=== PATIENT | male | born 1980 | race Caucasian/White ===

== ENCOUNTER 2017-01-11 22:10 | Inpatient (IN) ==
[2017-01-11] MEDS ORDERED: *HR* LORazepam 1 MG TABLET PO ONE (22:58)
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
[2017-01-11 23:16] LABS: Bilirubin,Urine Negative (Negative); Blood,Urine Negative (Negative); Clarity,Urine Clear (Clear); Color,Urine Yellow (Yellow); Glucose,Urine (UA) Normal (Normal); Ketones,Urine Trace mg/dL (Negative); Leukocyte Esterase,Urine Negative (Negative); Nitrite,Urine Negative (Negative); Protein,Urine Trace mg/dL (Neg-Trace); Specific Gravity,Urine > 1.030 (1.010-1.025); Urobilinogen,Urine Normal (Normal)
[2017-01-11 23:18] LABS: Basophils % 0.4 %; Eosinophils # 0.1 K/mcL (0.0-0.6); Eosinophils % 0.5 %; Hematocrit 46.1 % (37.5-50.1); Hemoglobin 15.5 g/dL (12.9-16.9); Immature Granulocytes % 0.4 % (0-4); Lymphocytes # 1.9 K/mcL (0.6-4.6); Mean Corpuscular HGB Conc 33.6 g/dL (31.6-35.5); Mean Corpuscular Hemoglobin 28.8 pg (28.0-33.3); Mean Corpuscular Volume 85.7 fL (83.0-100.0); Mean Platelet Volume 10.2 fL (9.4-12.4); Monocytes # 0.8 K/mcL (0.0-1.3); Monocytes % 7.5 %; Neutrophils # 8.1 K/mcL (1.6-8.9); Platelet Count 287 K/mcL (140-400); Red Blood Count 5.38 M/mcL (4.19-5.50); Red Cell Distribution Width 13.9 % (11.5-14.5); Segmented Neutrophils % 74.2 %
[2017-01-11 23:18] LABS: Bacteria,Urine None Seen per hpf (None-Few); Hyaline Casts,Urine None Seen per lpf (None-Few); RBC,Urine 0-3 per hpf (0-3); Squamous Epithelial Cell,Urine Few per lpf (None-Few); WBC,Urine 0-3 per hpf (0-3)
[2017-01-11 23:22] LABS: Amphetamine Screen,Urine Negative ng/mL (Cutoff=1000); Barbiturate Screen,Urine Negative ng/mL (Cutoff=200); Benzodiazepines Screen,Urine Negative ng/mL (Cutoff=200); Cannabinoid Screen,Urine Negative ng/mL (Cutoff = 50); Cocaine Screen,Urine Negative ng/mL (Cutoff= 300); Opiate Screen,Urine Negative ng/mL (Cutoff=300); Phencyclidine Screen,Urine Negative ng/mL (Cutoff=25)
[2017-01-11 23:31] LABS: BUN/Creatinine Ratio 18 (6-26); Blood Urea Nitrogen 16 mg/dL (8-26); Carbon Dioxide 22 mEq/L (19-29); Chloride 107 mEq/L (98-109); Glucose 89 mg/dL (70-99); Osmolality,Calculated 289 (280-300); Potassium 3.6 mEq/L (3.5-4.5); Sodium 139 mEq/L (136-145); eGFR For African Americans > 60 (> 60); eGFR For Non-African Americans > 60 (> 60)
[2017-01-11 23:32] LABS: Acetaminophen < 1.0 mcg/mL (10-30); Ethanol < 10 mg/dL (0-10); Salicylate < 5.0 mg/dL (15-30)
[2017-01-12] MEDS ORDERED: Acetaminophen 325 MG TABLET PO PRN (01:01)
[2017-01-12] MEDS ORDERED: MOM Conc 10 ML UD.LIQ PO PRN (01:01)
[2017-01-12] MEDS ORDERED: *HR* LORazepam 1 MG TABLET PO PRN (01:01)
[2017-01-12] MEDS ORDERED: Mag Hydrox/Al Hydrox/Simeth 30 ML UDC PO PRN (01:01)
[2017-01-12] MEDS ORDERED: Haloperidol Lactate 5 MG/ML VIAL IM PRN (01:01)
[2017-01-12] MEDS ORDERED: *HR* LORazepam 2 MG/ML VIAL IM PRN (01:01)
[2017-01-12] MEDS: traZODone 50 MG TABLET PO PRN ×2 (01:38→22:44)
[2017-01-12] MEDS: Gabapentin 400 MG CAPSULE PO SCH ×2 (09:05→20:27)
[2017-01-12] MEDS: Fluticasone Propionate Nasal 50 MCG/SPRAY BOTTLE NS SCH (09:05)
[2017-01-12] MEDS: Nicotine 2 MG GUM BC PRN ×4 (09:12→21:18)
[2017-01-12] MEDS: hydrOXYzine pamoate 25 MG CAPSULE PO PRN ×2 (09:42→20:52)
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
[2017-01-12] MEDS: ARIPiprazole 2 MG TABLET PO SCH (14:50)
[2017-01-13] MEDS: ARIPiprazole 2 MG TABLET PO SCH (08:45)
[2017-01-13] MEDS: Gabapentin 400 MG CAPSULE PO SCH (08:45)
[2017-01-13] MEDS: Fluticasone Propionate Nasal 50 MCG/SPRAY BOTTLE NS SCH (08:46)
[2017-01-13] MEDS: Nicotine 2 MG GUM BC PRN ×2 (08:47→14:15)
[2017-01-13 09:37] VITALS: BP 124/72
--- NOTE | 2017-01-13 12:29 | Discharge Summary ---
Date of Encounter: 01/13/17 Time of Encounter: 10:25 Diagnosis - Discharge Diagnosis (1) Major depressive disorder, recurrent severe without psychotic features Priority: Primary Status: Acute (2) Anxiety disorder Priority: Secondary Status: Acute Qualifiers: Anxiety disorder type: generalized anxiety disorder Qualified Code(s): F41.1 - Generalized anxiety disorder Medications - Discharge Medications Prescriptions: RX: ARIPiprazole [Abilify] 2 mg PO DAILY #30 tab RX: Escitalopram [Lexapro] 20 mg PO DAILY #30 tab RX: HydrOXYzine Pamoate [Vistaril] 50 mg PO TID PRN #90 capsule PRN Reason: Anxiety RX: traZODone [TraZODone] 50 mg PO HS PRN #30 tab PRN Reason: Insomnia Escitalopram [Lexapro] 30 mg PO DAILY #45 tablet 06/23/15 [Rx] Gabapentin [Neurontin] 800 mg PO TID 07/16/16 [History] Albuterol Sulfate [Ventolin Hfa] 1 - 2 puff IH Q6H PRN 01/12/17 [History] Loratadine [Claritin] 10 mg PO DAILY 01/12/17 [History] ARIPiprazole [Abilify] 2 mg PO DAILY #30 tab 01/13/17 [Rx] Escitalopram [Lexapro] 20 mg PO DAILY #30 tab 01/13/17 [Rx] HydrOXYzine Pamoate [Vistaril] 50 mg PO TID PRN #90 capsule 01/13/17 [Rx] traZODone [TraZODone] 50 mg PO HS PRN #30 tab 01/13/17 [Rx] Allergies promethazine [From Phenergan] Allergy (Verified 07/20/16 10:49) Hives Provider Date of admission: 01/12/17 00:47 Primary care physician: PCP NONE Consults: 01/12/17 01:28 Consult to Pastoral Services [CONS] Routine Comment: per patient request Discharging clinician: Hoa Neal Assessment and Plan - Patient/Caregiver Discharge Instructions Activity: resume usual activities as tolerated Diet: regular diet - Follow up Plan Follow up with: NONE,PCP [Primary Care Provider] - Functional capacity at discharge: independent ambulation Overall status at discharge: Stable Disposition: Home, Self-Care Hospital Course Hospital course: Mr. Ott is a 36 year old male with a history of depression and anxiety who presented to the hospital with increasing agitation, anxiety and depression. He also had suicidal ideations. Patient was admitted to [facility] for psychiatric stabilization. He was incorporated into the therapeutic milieu and offer group and individual as well as recreational therapy. He was placed on suicide precautions and close observation per unit protocol. Patient was continued on Lexapro but started on Abilify to help with mood symptoms. He was provided with trazodone for sleep and hydroxyzine for anxiety symptoms. Patient reported that his depression symptoms improved with starting the medication. He did attend some group and unit activities and was cooperative and appropriate with peers and staff. At the time of discharge she denied suicidal or homicidal ideation, intent or plan. He was interested in continuing his treatment as an outpatient. He denies side effects of his current medications. Discharge in stable condition to continue treatment as an outpatient. - Time Spent with Patient Total time spent providing and/or coordinating discharge services: Less than 30 minutes Quality - Multiple Antipsychotics Patient discharged on 2 or more antipsychotic medications: No Procedures - Procedures Procedures: Medication Management, Crisis Stabilization, Supportive Therapy, Group Therapy, Psychoeducational Therapy Mental Status Exam - Mental Status Exam Patient orientation: Yes Person, Yes Time, Yes Place Level of alertness: Alert Patient appearance: Appropriate, Well Groomed Behavior: calm, cooperative Psychomotor activity: Normal Eye contact: Maintains Eye Contact Mood description: Euthymic/stable Affect description: congruent with mood, full range Speech pattern: Normal rate, Normal rhythm, Normal tone Speech Volume: Normal Thought process: Linear, Goal Oriented Thought Content: No Suicidal ideation, No Homicidal ideation, No Overt delusions Perceptual Disturbances: No Auditory hallucinations, No Visual hallucinations Judgment: Limited Insight: Partial
== END 2017-01-13 14:55 | disposition home or self-care (01) | DRG 751 ==
LOC: EMEROO 22:10 → 1ANU 01-12 00:47
PROVIDERS: ADMIT Student in an Organized Health Care Education/Training Program; ATTEND Student in an Organized Health Care Education/Training Program

== ENCOUNTER 2019-10-16 16:34 | Inpatient (IN) ==
[2019-10-16 17:14] LABS: Bilirubin,Urine Negative (Negative); Blood,Urine Negative (Negative); Clarity,Urine Clear (Clear); Color,Urine Yellow (Yellow); Glucose,Urine (UA) Normal (Normal); Ketones,Urine Negative (Negative); Leukocyte Esterase,Urine Negative (Negative); Nitrite,Urine Negative (Negative); PH,Urine 6.5 pH Units (5.0-8.0); Protein,Urine Negative (Neg-Trace); Specific Gravity,Urine 1.026 (1.010-1.025); Urobilinogen,Urine Normal (Normal)
[2019-10-16 17:23] LABS: Amphetamine Screen,Urine Negative ng/mL (Cutoff=1000); Barbiturate Screen,Urine Negative ng/mL (Cutoff=200); Benzodiazepines Screen,Urine Negative ng/mL (Cutoff=200); Cannabinoid Screen,Urine Negative ng/mL (Cutoff = 50); Cocaine Screen,Urine Negative ng/mL (Cutoff= 300); Opiate Screen,Urine Negative ng/mL (Cutoff=300); Phencyclidine Screen,Urine Negative ng/mL (Cutoff=25)
[2019-10-16 18:33] LABS: Basophils # 0.1 K/mcL (0.0-0.2); Basophils % 0.6 %; Eosinophils # 0.1 K/mcL (0.0-0.6); Eosinophils % 0.8 %; Hematocrit 44.8 % (37.5-50.1); Hemoglobin 14.9 g/dL (12.9-16.9); Immature Granulocytes % 0.4 % (0-4); Lymphocytes # 2.2 K/mcL (0.6-4.6); Lymphocytes % 27.9 %; Mean Corpuscular HGB Conc 33.3 g/dL (31.6-35.5); Mean Corpuscular Hemoglobin 28.2 pg (28.0-33.3); Mean Corpuscular Volume 84.8 fL (83.0-100.0); Mean Platelet Volume 9.7 fL (9.4-12.4); Monocytes # 0.7 K/mcL (0.0-1.3); Monocytes % 8.6 %; Neutrophils # 4.8 K/mcL (1.6-8.9); Platelet Count 271 K/mcL (140-400); Red Blood Count 5.28 M/mcL (4.19-5.50); Red Cell Distribution Width 13.4 % (11.5-14.5); Segmented Neutrophils % 61.7 %; White Blood Count 7.7 K/mcL (4.3-11.1)
[2019-10-16 18:55] LABS: Acetaminophen < 10 mcg/mL (10-20); BUN/Creatinine Ratio 18 (6-26); Blood Urea Nitrogen 15 mg/dL (6-20); Calcium 8.8 mg/dL (8.6-10.3); Carbon Dioxide 23 mEq/L (23-29); Chloride 105 mEq/L (98-107); Ethanol < 10 mg/dL (Less than 10); Glucose 82 mg/dL (70-105); Osmolality,Calculated 286 (280-300); Salicylate < 2.5 mg/dL (15.0-30.0); Sodium 138 mEq/L (136-145); eGFR For African Americans > 60 (> 60); eGFR For Non-African Americans > 60 (> 60)
[2019-10-16] MEDS ORDERED: Acetaminophen 325 MG TABLET PO PRN (20:44)
[2019-10-16] MEDS ORDERED: *HR* LORazepam 2 MG/ML VIAL IM PRN (20:44)
[2019-10-16] MEDS ORDERED: Haloperidol Lactate 5 MG/ML VIAL IM PRN (20:44)
[2019-10-16] MEDS ORDERED: Ibuprofen 400 MG TABLET PO PRN (20:44)
[2019-10-16] MEDS ORDERED: QUEtiapine Fumarate 25 MG TABLET PO PRN (20:44)
[2019-10-16] MEDS ORDERED: haloperidoL 5 MG TABLET PO PRN (20:44)
[2019-10-16] MEDS ORDERED: *HR* LORazepam 1 MG TABLET PO PRN (20:44)
[2019-10-16] MEDS ORDERED: hydrOXYzine pamoate 25 MG CAPSULE PO PRN (21:30)
[2019-10-16] MEDS: Gabapentin 300 MG CAPSULE PO SCH (22:55)
[2019-10-16] MEDS: traZODone 50 MG TABLET PO SCH (22:57)
[2019-10-17] MEDS: Ziprasidone 20 MG CAPSULE PO SCH ×2 (08:30→20:36)
[2019-10-17] MEDS: Gabapentin 300 MG CAPSULE PO SCH ×3 (08:30→20:37)
[2019-10-17] MEDS: clonazePAM 1 MG TABLET PO SCH ×2 (08:30→20:37)
[2019-10-17] MEDS: Loratadine/Pseudophed (12 HR) 1 EACH TABLET PO SCH ×2 (08:30→20:36)
[2019-10-17] MEDS ORDERED: hydrOXYzine pamoate 25 MG CAPSULE PO PRN (09:55)
[2019-10-17] MEDS ORDERED: NON-FORMULARY MEDICATION 1 EACH EACH (Trazodone Hcl 150 MG) PO PRN (09:55)
[2019-10-17] MEDS ORDERED: Loratadine 10 MG TABLET PO SCH (10:00)
[2019-10-17] MEDS ORDERED: clonazePAM 1 MG TABLET PO SCH (10:00)
[2019-10-17] MEDS: Nicotine 2 MG GUM BC PRN ×4 (10:03→19:52)
[2019-10-17] MEDS: traZODone 50 MG TABLET PO SCH (20:37)
[2019-10-18] MEDS: Nicotine 2 MG GUM BC PRN ×6 (06:25→20:05)
[2019-10-18] MEDS: Gabapentin 300 MG CAPSULE PO SCH ×3 (08:47→20:06)
[2019-10-18] MEDS: Ziprasidone 20 MG CAPSULE PO SCH ×2 (08:47→20:05)
[2019-10-18] MEDS: clonazePAM 1 MG TABLET PO SCH ×2 (08:47→20:05)
[2019-10-18] MEDS: Loratadine/Pseudophed (12 HR) 1 EACH TABLET PO SCH ×2 (08:47→20:06)
[2019-10-18 13:04] LABS: Estimated Average Glucose 114 mg/dl
[2019-10-18] MEDS: traZODone 50 MG TABLET PO SCH (20:06)
[2019-10-19] MEDS: clonazePAM 1 MG TABLET PO SCH (08:38)
[2019-10-19] MEDS: Ziprasidone 20 MG CAPSULE PO SCH (08:38)
[2019-10-19] MEDS: Loratadine/Pseudophed (12 HR) 1 EACH TABLET PO SCH (08:38)
[2019-10-19] MEDS: Gabapentin 300 MG CAPSULE PO SCH (08:38)
[2019-10-19] MEDS: Nicotine 2 MG GUM BC PRN ×2 (08:41→12:02)
[2019-10-19 09:11] VITALS: BP 119/75
== END 2019-10-19 13:20 | disposition home or self-care (01) | DRG 751 ==
LOC: EMEROOARM 16:34 → 1ANU 20:35
PROVIDERS: ADMIT Psychiatry & Neurology Psychiatry; ATTEND Psychiatry & Neurology Psychiatry

== ENCOUNTER 2020-03-24 12:03 | Inpatient (IN) ==
[2020-03-24 13:08] LABS: Basophils % 0.6 %; Eosinophils % 0.5 %; Hematocrit 48.9 % (37.5-50.1); Hemoglobin 16.9 g/dL (12.9-16.9); Immature Granulocytes % 0.3 % (0-4); Lymphocytes # 1.3 K/mcL (0.6-4.6); Lymphocytes % 20.2 %; Mean Corpuscular HGB Conc 34.6 g/dL (31.6-35.5); Mean Corpuscular Hemoglobin 29.9 pg (28.0-33.3); Mean Corpuscular Volume 86.4 fL (83.0-100.0); Monocytes # 0.5 K/mcL (0.0-1.3); Monocytes % 7.4 %; Neutrophils # 4.6 K/mcL (1.6-8.9); Platelet Count 272 K/mcL (140-400); Red Blood Count 5.66 M/mcL (4.19-5.50); White Blood Count 6.5 K/mcL (4.3-11.1)
[2020-03-24 13:10] LABS: Bilirubin,Urine Negative (Negative); Blood,Urine Negative (Negative); Clarity,Urine Clear (Clear); Color,Urine Yellow (Yellow); Glucose,Urine (UA) Normal (Normal); Ketones,Urine Negative (Negative); Leukocyte Esterase,Urine Negative (Negative); Nitrite,Urine Negative (Negative); Protein,Urine Trace mg/dL (Neg-Trace); Specific Gravity,Urine 1.029 (1.010-1.025); Urobilinogen,Urine Normal (Normal)
[2020-03-24 13:21] LABS: Estimated Average Glucose 111 mg/dl
[2020-03-24 13:38] LABS: Amphetamine Screen,Urine Negative ng/mL (Cutoff=1000); Barbiturate Screen,Urine Negative ng/mL (Cutoff=200); Benzodiazepines Screen,Urine Negative ng/mL (Cutoff=200); Cannabinoid Screen,Urine Negative ng/mL (Cutoff = 50); Cocaine Screen,Urine Negative ng/mL (Cutoff= 300); Opiate Screen,Urine Negative ng/mL (Cutoff=300); Phencyclidine Screen,Urine Negative ng/mL (Cutoff=25)
[2020-03-24 13:41] LABS: Acetaminophen < 10 mcg/mL (10-20); BUN/Creatinine Ratio 15 (6-26); Blood Urea Nitrogen 16 mg/dL (6-20); Calcium 9.1 mg/dL (8.6-10.3); Carbon Dioxide 22 mEq/L (23-29); Chloride 107 mEq/L (98-107); Chol/HDL Ratio 7.2 (0-4.9); Cholesterol 188 mg/dL (< 200); Ethanol < 10 mg/dL (Less than 10); Glucose 96 mg/dL (70-105); HDL Cholesterol 26 mg/dL (40-59); LDL Cholesterol,Calculated 138 mg/dL (< 100); Osmolality,Calculated 287 (280-300); Potassium 3.9 mEq/L (3.5-5.1); Salicylate < 2.5 mg/dL (15.0-30.0); Sodium 138 mEq/L (136-145); Triglycerides 118 mg/dL (< 150); eGFR For African Americans > 60 (> 60); eGFR For Non-African Americans > 60 (> 60)
[2020-03-24] MEDS ORDERED: Haloperidol Lactate 5 MG/ML VIAL IM PRN (15:54)
[2020-03-24] MEDS ORDERED: traZODone 50 MG TABLET PO PRN (15:54)
[2020-03-24] MEDS ORDERED: MOM Conc 10 ML UD.LIQ PO PRN (15:54)
[2020-03-24] MEDS ORDERED: haloperidoL 5 MG TABLET PO PRN (15:54)
[2020-03-24] MEDS ORDERED: Acetaminophen 325 MG TABLET PO PRN (15:54)
[2020-03-24] MEDS ORDERED: *HR* LORazepam 2 MG/ML VIAL IM PRN (15:54)
[2020-03-24] MEDS ORDERED: Mag Hydrox/Al Hydrox/Simeth 30 ML UDC PO PRN (15:54)
[2020-03-24] MEDS ORDERED: *HR* LORazepam 1 MG TABLET PO PRN (15:54)
[2020-03-24] MEDS: hydrOXYzine pamoate 25 MG CAPSULE PO SCH (16:52)
[2020-03-24] MEDS: clonazePAM 1 MG TABLET PO SCH (20:29)
[2020-03-24] MEDS: Ziprasidone 20 MG CAPSULE PO SCH (20:29)
[2020-03-24] MEDS: traZODone 50 MG TABLET PO SCH (20:29)
[2020-03-24] MEDS: Gabapentin 300 MG CAPSULE PO SCH (20:29)
[2020-03-24] MEDS: Nicotine 2 MG GUM BC PRN (22:15)
[2020-03-25] MEDS: hydrOXYzine pamoate 25 MG CAPSULE PO SCH ×3 (01:10→16:15)
[2020-03-25] MEDS: Nicotine 2 MG GUM BC PRN ×4 (07:50→20:18)
[2020-03-25] MEDS: clonazePAM 1 MG TABLET PO SCH ×2 (09:09→20:15)
[2020-03-25] MEDS: Ziprasidone 20 MG CAPSULE PO SCH ×2 (09:10→16:14)
[2020-03-25] MEDS: Gabapentin 300 MG CAPSULE PO SCH ×3 (09:10→20:15)
[2020-03-25] MEDS: traZODone 50 MG TABLET PO SCH (20:15)
[2020-03-26] MEDS: hydrOXYzine pamoate 25 MG CAPSULE PO SCH ×3 (00:17→16:49)
[2020-03-26] MEDS: Ziprasidone 20 MG CAPSULE PO SCH ×2 (08:57→16:49)
[2020-03-26] MEDS: Gabapentin 300 MG CAPSULE PO SCH ×3 (08:57→19:55)
[2020-03-26] MEDS: clonazePAM 1 MG TABLET PO SCH ×2 (08:57→19:54)
[2020-03-26] MEDS ORDERED: QUEtiapine Fumarate 25 MG TABLET PO PRN (08:58)
[2020-03-26] MEDS: Nicotine 2 MG GUM BC PRN ×4 (09:06→20:26)
[2020-03-26] MEDS ORDERED: QUEtiapine Fumarate 25 MG TABLET PO SCH (21:00)
[2020-03-27] MEDS: Ziprasidone 20 MG CAPSULE PO SCH (08:21)
[2020-03-27] MEDS: Gabapentin 300 MG CAPSULE PO SCH (08:22)
[2020-03-27] MEDS: hydrOXYzine pamoate 25 MG CAPSULE PO SCH ×2 (08:22)
[2020-03-27] MEDS: clonazePAM 1 MG TABLET PO SCH (08:22)
[2020-03-27] MEDS: Nicotine 2 MG GUM BC PRN (08:26)
[2020-03-27 08:34] VITALS: BP 129/80
== END 2020-03-27 10:05 | disposition home or self-care (01) | DRG 754 ==
LOC: EMEROOARM 12:03 → 1ANU 15:28
PROVIDERS: ADMIT Psychiatry & Neurology Psychiatry; ATTEND Psychiatry & Neurology Psychiatry

== ENCOUNTER 2020-05-16 12:47 | Observation (INO) ==
[2020-05-16 13:39] LABS: Basophils % 0.6 %; Eosinophils % 0.4 %; Hematocrit 46.4 % (37.5-50.1); Hemoglobin 15.2 g/dL (12.9-16.9); Immature Granulocytes % 0.6 % (0-4); Lymphocytes # 1.2 K/mcL (0.6-4.6); Mean Corpuscular HGB Conc 32.8 g/dL (31.6-35.5); Mean Corpuscular Hemoglobin 27.9 pg (28.0-33.3); Mean Corpuscular Volume 85.3 fL (83.0-100.0); Mean Platelet Volume 9.7 fL (9.4-12.4); Monocytes # 0.6 K/mcL (0.0-1.3); Monocytes % 8.9 %; Platelet Count 299 K/mcL (140-400); Red Blood Count 5.44 M/mcL (4.19-5.50); Red Cell Distribution Width 12.9 % (11.5-14.5); Segmented Neutrophils % 72.5 %; White Blood Count 6.9 K/mcL (4.3-11.1)
[2020-05-16 13:58] LABS: Acetaminophen < 10 mcg/mL (10-20); BUN/Creatinine Ratio 12 (6-26); Blood Urea Nitrogen 11 mg/dL (6-20); Calcium 8.7 mg/dL (8.6-10.3); Carbon Dioxide 24 mEq/L (23-29); Chloride 105 mEq/L (98-107); Chol/HDL Ratio 5.5 (0-4.9); Cholesterol 159 mg/dL (< 200); Ethanol < 10 mg/dL (Less than 10); Glucose 88 mg/dL (70-105); HDL Cholesterol 29 mg/dL (40-59); LDL Cholesterol,Calculated 105 mg/dL (< 100); Osmolality,Calculated 281 (280-300); Potassium 3.9 mEq/L (3.5-5.1); Salicylate < 2.5 mg/dL (15.0-30.0); Sodium 136 mEq/L (136-145); Triglycerides 127 mg/dL (< 150); eGFR For African Americans > 60 (> 60); eGFR For Non-African Americans > 60 (> 60)
[2020-05-16 14:04] LABS: Amphetamine Screen,Urine Negative ng/mL (Cutoff=1000); Barbiturate Screen,Urine Negative ng/mL (Cutoff=200); Benzodiazepines Screen,Urine Negative ng/mL (Cutoff=200); Cannabinoid Screen,Urine Negative ng/mL (Cutoff = 50); Cocaine Screen,Urine Negative ng/mL (Cutoff= 300); Opiate Screen,Urine Negative ng/mL (Cutoff=300); Phencyclidine Screen,Urine Negative ng/mL (Cutoff=25)
[2020-05-16 14:05] LABS: Bilirubin,Urine Negative (Negative); Blood,Urine Negative (Negative); Clarity,Urine Clear (Clear); Color,Urine Light-Yellow (Yellow); Glucose,Urine (UA) Normal (Normal); Ketones,Urine Negative (Negative); Leukocyte Esterase,Urine Negative (Negative); Nitrite,Urine Negative (Negative); PH,Urine 6.5 pH Units (5.0-8.0); Protein,Urine Negative (Neg-Trace); Specific Gravity,Urine 1.015 (1.010-1.025); Urobilinogen,Urine Normal (Normal)
[2020-05-16 15:29] LABS: Estimated Average Glucose 111 mg/dl
[2020-05-16] MEDS ORDERED: Acetaminophen 325 MG TABLET PO PRN (16:51)
[2020-05-16] MEDS ORDERED: haloperidoL 5 MG TABLET PO PRN (16:51)
[2020-05-16] MEDS ORDERED: Haloperidol Lactate 5 MG/ML VIAL IM PRN (16:51)
[2020-05-16] MEDS ORDERED: MOM Conc 10 ML UD.LIQ PO PRN (16:51)
[2020-05-16] MEDS ORDERED: traZODone 50 MG TABLET PO PRN (16:51)
[2020-05-16] MEDS ORDERED: Mag Hydrox/Al Hydrox/Simeth 30 ML UDC PO PRN (16:51)
[2020-05-16] MEDS: hydrOXYzine pamoate 25 MG CAPSULE PO SCH (17:20)
[2020-05-16] MEDS: Ziprasidone 20 MG CAPSULE PO SCH (20:57)
[2020-05-16] MEDS: traZODone 50 MG TABLET PO SCH (20:57)
[2020-05-16] MEDS: Gabapentin 300 MG CAPSULE PO SCH (20:57)
[2020-05-16] MEDS: clonazePAM 1 MG TABLET PO SCH (20:57)
[2020-05-16] MEDS: Nicotine 2 MG GUM BC PRN (21:01)
[2020-05-16] MEDS: Azelastine 0.1% Nasal Spray 30 ML BOTTLE NS SCH (22:31)
[2020-05-17] MEDS: hydrOXYzine pamoate 25 MG CAPSULE PO SCH ×3 (05:35→17:05)
[2020-05-17] MEDS: Ziprasidone 20 MG CAPSULE PO SCH ×2 (08:48→20:38)
[2020-05-17] MEDS: clonazePAM 1 MG TABLET PO SCH ×2 (08:49→20:38)
[2020-05-17] MEDS: Azelastine 0.1% Nasal Spray 30 ML BOTTLE NS SCH ×2 (08:49→20:39)
[2020-05-17] MEDS: Gabapentin 300 MG CAPSULE PO SCH ×3 (08:49→20:39)
[2020-05-17] MEDS: Nicotine 2 MG GUM BC PRN ×4 (08:53→21:05)
[2020-05-17] MEDS: traZODone 50 MG TABLET PO SCH (20:38)
[2020-05-18] MEDS: hydrOXYzine pamoate 25 MG CAPSULE PO SCH ×2 (01:09→08:33)
[2020-05-18] MEDS: Azelastine 0.1% Nasal Spray 30 ML BOTTLE NS SCH (08:32)
[2020-05-18] MEDS: Ziprasidone 20 MG CAPSULE PO SCH (08:33)
[2020-05-18] MEDS: clonazePAM 1 MG TABLET PO SCH (08:33)
[2020-05-18] MEDS: Gabapentin 300 MG CAPSULE PO SCH (08:33)
[2020-05-18] MEDS: Nicotine 2 MG GUM BC PRN (08:36)
[2020-05-18 08:58] VITALS: BP 133/84
== END 2020-05-18 11:00 | disposition home or self-care (01) ==
LOC: 1ANU 12:47 → EMEROOARM 12:47 → 1ANU 17:09
PROVIDERS: ADMIT Psychiatry & Neurology Psychiatry; ATTEND Psychiatry & Neurology Psychiatry

== ENCOUNTER 2020-07-28 17:53 | Observation (INO) ==
[2020-07-28 18:33] LABS: Basophils % 0.5 %; Eosinophils # 0.1 K/mcL (0.0-0.6); Eosinophils % 1.1 %; Hematocrit 45.3 % (37.5-50.1); Hemoglobin 15.4 g/dL (12.9-16.9); Immature Granulocytes % 0.4 % (0-4); Lymphocytes # 1.5 K/mcL (0.6-4.6); Mean Corpuscular Hemoglobin 29.2 pg (28.0-33.3); Mean Corpuscular Volume 85.8 fL (83.0-100.0); Mean Platelet Volume 9.6 fL (9.4-12.4); Monocytes # 1.1 K/mcL (0.0-1.3); Monocytes % 14.4 %; Neutrophils # 5.1 K/mcL (1.6-8.9); Platelet Count 278 K/mcL (140-400); Red Blood Count 5.28 M/mcL (4.19-5.50); Red Cell Distribution Width 13.8 % (11.5-14.5); Segmented Neutrophils % 64.6 %; White Blood Count 7.9 K/mcL (4.3-11.1)
[2020-07-28 18:48] LABS: Acetaminophen < 10 mcg/mL (10-20); BUN/Creatinine Ratio 21 (6-26); Blood Urea Nitrogen 16 mg/dL (6-20); Carbon Dioxide 25 mEq/L (23-29); Chloride 108 mEq/L (98-107); Ethanol < 10 mg/dL (Less than 10); Glucose 82 mg/dL (70-105); Osmolality,Calculated 288 (280-300); Potassium 3.8 mEq/L (3.5-5.1); Salicylate < 2.5 mg/dL (15.0-30.0); Sodium 139 mEq/L (136-145); eGFR For African Americans > 60 (> 60); eGFR For Non-African Americans > 60 (> 60)
[2020-07-28 18:59] LABS: Amphetamine Screen,Urine Negative ng/mL (Cutoff=1000); Barbiturate Screen,Urine Negative ng/mL (Cutoff=200); Benzodiazepines Screen,Urine Negative ng/mL (Cutoff=200); Bilirubin,Urine Negative (Negative); Blood,Urine Negative (Negative); Cannabinoid Screen,Urine Negative ng/mL (Cutoff = 50); Clarity,Urine Clear (Clear); Cocaine Screen,Urine Negative ng/mL (Cutoff= 300); Color,Urine Light-Yellow (Yellow); Glucose,Urine (UA) Normal (Normal); Ketones,Urine Negative (Negative); Leukocyte Esterase,Urine Negative (Negative); Mucus,Urine Few per lpf (None-Few); Nitrite,Urine Negative (Negative); Opiate Screen,Urine Negative ng/mL (Cutoff=300); PH,Urine 6.5 pH Units (5.0-8.0); Phencyclidine Screen,Urine Negative ng/mL (Cutoff=25); Protein,Urine 30 mg/dL (Neg-Trace); RBC,Urine 0-3 per hpf (0-3); Specific Gravity,Urine 1.027 (1.010-1.025); Urobilinogen,Urine Normal (Normal); WBC,Urine 0-3 per hpf (0-3)
[2020-07-28] MEDS ORDERED: MOM Conc 10 ML UD.LIQ PO PRN (21:51)
[2020-07-28] MEDS ORDERED: Acetaminophen 325 MG TABLET PO PRN (21:51)
[2020-07-28] MEDS ORDERED: hydrOXYzine pamoate 25 MG CAPSULE PO PRN (21:51)
[2020-07-28] MEDS ORDERED: haloperidoL 5 MG TABLET PO PRN (21:51)
[2020-07-28] MEDS ORDERED: *HR* LORazepam 2 MG/ML VIAL IM PRN (21:51)
[2020-07-28] MEDS ORDERED: traZODone 50 MG TABLET PO PRN (21:51)
[2020-07-28] MEDS ORDERED: Haloperidol Lactate 5 MG/ML VIAL IM PRN (21:51)
[2020-07-28] MEDS ORDERED: *HR* LORazepam 1 MG TABLET PO PRN (21:51)
[2020-07-28] MEDS ORDERED: Mag Hydrox/Al Hydrox/Simeth 30 ML UDC PO PRN (21:51)
[2020-07-28] MEDS: Nicotine 2 MG GUM BC PRN (23:47)
[2020-07-28] MEDS: hydrOXYzine pamoate 25 MG CAPSULE PO SCH (23:47)
[2020-07-28] MEDS: Gabapentin 300 MG CAPSULE PO SCH (23:48)
[2020-07-28] MEDS: clonazePAM 1 MG TABLET PO SCH (23:48)
[2020-07-28] MEDS: Ziprasidone 20 MG CAPSULE PO SCH (23:48)
[2020-07-29] MEDS: hydrOXYzine pamoate 25 MG CAPSULE PO SCH ×2 (06:56→14:20)
[2020-07-29] MEDS: clonazePAM 1 MG TABLET PO SCH (08:32)
[2020-07-29] MEDS: Ziprasidone 20 MG CAPSULE PO SCH (08:32)
[2020-07-29] MEDS: Gabapentin 300 MG CAPSULE PO SCH ×2 (08:33→14:19)
[2020-07-29] MEDS: Nicotine 2 MG GUM BC PRN ×3 (08:35→16:16)
[2020-07-29 09:04] VITALS: BP 137/82
== END 2020-07-29 17:50 | disposition home or self-care (01) ==
LOC: 1ANU 17:53 → EMEROOARM 17:53 → 1ANU 23:04
PROVIDERS: ADMIT Psychiatry & Neurology Psychiatry; ATTEND Psychiatry & Neurology Psychiatry

== ENCOUNTER 2020-08-18 14:48 | Observation (INO) ==
[2020-08-18] MEDS ORDERED: GI Cocktail 40 ML EACH PO ONE (15:00)
[2020-08-18 15:19] LABS: Basophils % 0.4 %; Eosinophils # 0.1 K/mcL (0.0-0.6); Eosinophils % 1.2 %; Hematocrit 43.6 % (37.5-50.1); Hemoglobin 14.8 g/dL (12.9-16.9); Lymphocytes # 1.4 K/mcL (0.6-4.6); Lymphocytes % 27.4 %; Mean Corpuscular HGB Conc 33.9 g/dL (31.6-35.5); Mean Corpuscular Hemoglobin 28.7 pg (28.0-33.3); Mean Corpuscular Volume 84.5 fL (83.0-100.0); Mean Platelet Volume 9.7 fL (9.4-12.4); Monocytes # 0.7 K/mcL (0.0-1.3); Monocytes % 13.4 %; Neutrophils # 2.8 K/mcL (1.6-8.9); Platelet Count 268 K/mcL (140-400); Red Blood Count 5.16 M/mcL (4.19-5.50); Red Cell Distribution Width 13.2 % (11.5-14.5); Segmented Neutrophils % 56.6 %; White Blood Count 4.9 K/mcL (4.3-11.1)
[2020-08-18 15:50] LABS: Alanine Aminotransferase 25 Units/L (7-52); Albumin 3.6 g/dL (3.5-5.7); Albumin/Globulin Ratio 1.2 (1.1-2.2); Alkaline Phosphatase 68 Units/L (34-104); Aspartate Amino Transferase 17 Units/L (13-39); BUN/Creatinine Ratio 13 (6-26); Bilirubin,Indirect 0.5 mg/dL (0.0-1.0); Bilirubin,Total 0.5 mg/dL (0.3-1.0); Blood Urea Nitrogen 14 mg/dL (6-20); Calcium 8.6 mg/dL (8.6-10.3); Carbon Dioxide 27 mEq/L (23-29); Chloride 107 mEq/L (98-107); Glucose 88 mg/dL (70-105); Lipase 27 Units/L (11-82); Osmolality,Calculated 288 (280-300); Potassium 4.4 mEq/L (3.5-5.1); Sodium 139 mEq/L (136-145); Total Protein 6.6 g/dL (6.4-8.9); Troponin I < 0.03 ng/mL (< 0.04); eGFR For African Americans > 60 (> 60); eGFR For Non-African Americans > 60 (> 60)
[2020-08-18] MEDS ORDERED: Morphine Sulfate 2 MG/ML SYRINGE IVP STA (16:27)
[2020-08-18] MEDS ORDERED: Acetaminophen 325 MG TABLET PO PRN (18:08)
[2020-08-18] MEDS ORDERED: Ondansetron 4 MG/2 ML VIAL IVP PRN (18:08)
[2020-08-18] MEDS ORDERED: Naloxone 0.4 MG/ML INJ IVP PRN (18:08)
[2020-08-18] MEDS ORDERED: Nitroglycerin 0.4 MG TAB.SUBL SL PRN (19:42)
[2020-08-18] MEDS: Gabapentin 300 MG CAPSULE PO SCH ×2 (21:35→21:36)
[2020-08-18] MEDS: QUEtiapine Fumarate 25 MG TABLET PO SCH (21:36)
[2020-08-18] MEDS: Ziprasidone 20 MG CAPSULE PO SCH (21:36)
[2020-08-18] MEDS: clonazePAM 1 MG TABLET PO SCH (21:36)
[2020-08-18] MEDS: Pantoprazole 40 MG VIAL IVP SCH (21:37)
[2020-08-18] MEDS: hydrOXYzine pamoate 25 MG CAPSULE PO SCH (21:49)
[2020-08-19 03:12] LABS: Basophils % 0.7 %; Eosinophils # 0.1 K/mcL (0.0-0.6); Eosinophils % 1.8 %; Hematocrit 44.8 % (37.5-50.1); Hemoglobin 14.6 g/dL (12.9-16.9); Immature Granulocytes % 1.1 % (0-4); Lymphocytes # 2.1 K/mcL (0.6-4.6); Lymphocytes % 36.2 %; Mean Corpuscular HGB Conc 32.6 g/dL (31.6-35.5); Mean Corpuscular Hemoglobin 28.5 pg (28.0-33.3); Mean Corpuscular Volume 87.3 fL (83.0-100.0); Mean Platelet Volume 9.9 fL (9.4-12.4); Monocytes # 0.9 K/mcL (0.0-1.3); Monocytes % 15.1 %; Neutrophils # 2.6 K/mcL (1.6-8.9); Platelet Count 247 K/mcL (140-400); Red Blood Count 5.13 M/mcL (4.19-5.50); Red Cell Distribution Width 13.3 % (11.5-14.5); Segmented Neutrophils % 45.1 %; White Blood Count 5.7 K/mcL (4.3-11.1)
[2020-08-19 03:32] LABS: BUN/Creatinine Ratio 14 (6-26); Blood Urea Nitrogen 12 mg/dL (6-20); Calcium 8.2 mg/dL (8.6-10.3); Carbon Dioxide 23 mEq/L (23-29); Chloride 106 mEq/L (98-107); Glucose 103 mg/dL (70-105); Osmolality,Calculated 282 (280-300); Potassium 4.3 mEq/L (3.5-5.1); Sodium 136 mEq/L (136-145); eGFR For African Americans > 60 (> 60); eGFR For Non-African Americans > 60 (> 60)
[2020-08-19 03:33] LABS: Albumin 3.6 g/dL (3.5-5.7); Albumin/Globulin Ratio 1.2 (1.1-2.2); Bilirubin,Indirect 0.4 mg/dL (0.0-1.0); Bilirubin,Total 0.4 mg/dL (0.3-1.0); Chol/HDL Ratio 6.5 (0-4.9); Globulin 2.9 g/dL (2.4-3.5); Total Protein 6.5 g/dL (6.4-8.9)
[2020-08-19] MEDS: Sucralfate 1 GM TABLET PO SCH ×5 (04:02→20:51)
[2020-08-19] MEDS ORDERED: Regadenoson 0.4 MG/5 ML SYRINGE IVP ONE (06:09)
[2020-08-19] MEDS: Ziprasidone 20 MG CAPSULE PO SCH ×2 (09:34→20:49)
[2020-08-19] MEDS: clonazePAM 1 MG TABLET PO SCH ×2 (09:34→20:50)
[2020-08-19] MEDS: Pantoprazole 40 MG VIAL IVP SCH (09:34)
[2020-08-19] MEDS: hydrOXYzine pamoate 25 MG CAPSULE PO SCH ×3 (09:36→20:50)
[2020-08-19] MEDS: Gabapentin 300 MG CAPSULE PO SCH ×2 (15:20→20:50)
[2020-08-19] MEDS: QUEtiapine Fumarate 25 MG TABLET PO SCH (20:50)
[2020-08-19] MEDS ORDERED: Nicotine 7 MG PATCH.TD24 TD SCH (21:00)
[2020-08-19] MEDS ORDERED: GI Cocktail 40 ML EACH PO ONE (23:44)
[2020-08-20 04:56] LABS: Basophils % 0.8 %; Eosinophils # 0.1 K/mcL (0.0-0.6); Eosinophils % 2.5 %; Hematocrit 42.6 % (37.5-50.1); Hemoglobin 14.1 g/dL (12.9-16.9); Immature Granulocytes % 0.6 % (0-4); Lymphocytes # 1.6 K/mcL (0.6-4.6); Lymphocytes % 33.3 %; Mean Corpuscular HGB Conc 33.1 g/dL (31.6-35.5); Mean Corpuscular Hemoglobin 29.1 pg (28.0-33.3); Mean Corpuscular Volume 87.8 fL (83.0-100.0); Mean Platelet Volume 10.2 fL (9.4-12.4); Monocytes # 0.8 K/mcL (0.0-1.3); Monocytes % 17.3 %; Neutrophils # 2.2 K/mcL (1.6-8.9); Platelet Count 222 K/mcL (140-400); Red Blood Count 4.85 M/mcL (4.19-5.50); Red Cell Distribution Width 13.3 % (11.5-14.5); Segmented Neutrophils % 45.5 %; White Blood Count 4.8 K/mcL (4.3-11.1)
[2020-08-20 05:13] LABS: BUN/Creatinine Ratio 15 (6-26); Blood Urea Nitrogen 14 mg/dL (6-20); Calcium 8.2 mg/dL (8.6-10.3); Carbon Dioxide 25 mEq/L (23-29); Chloride 106 mEq/L (98-107); Glucose 118 mg/dL (70-105); Magnesium 2.1 mg/dL (1.6-2.6); Osmolality,Calculated 286 (280-300); Potassium 3.9 mEq/L (3.5-5.1); Sodium 137 mEq/L (136-145); eGFR For African Americans > 60 (> 60); eGFR For Non-African Americans > 60 (> 60)
[2020-08-20] MEDS: clonazePAM 1 MG TABLET PO SCH (08:56)
[2020-08-20] MEDS: Sucralfate 1 GM TABLET PO SCH ×3 (08:56→15:50)
[2020-08-20] MEDS: Gabapentin 300 MG CAPSULE PO SCH ×2 (08:56→15:50)
[2020-08-20] MEDS: Ziprasidone 20 MG CAPSULE PO SCH (08:56)
[2020-08-20] MEDS: hydrOXYzine pamoate 25 MG CAPSULE PO SCH ×2 (09:00→12:18)
[2020-08-20] MEDS ORDERED: Nicotine 7 MG PATCH.TD24 TD SCH (09:00)
[2020-08-20 15:49] VITALS: BP 113/69
== END 2020-08-20 18:00 | disposition home or self-care (01) ==
LOC: EMEROOARM 14:48 → 3BNU 14:48 → SUATTDRO 17:29 → 3BNU 18:03
PROVIDERS: ADMIT Pharmacist; ATTEND Pharmacist

== ENCOUNTER 2020-12-03 13:38 | Observation (INO) ==
[2020-12-03] MEDS ORDERED: Aspirin 81 MG TAB.CHEW PO STA (14:05)
[2020-12-03] MEDS ORDERED: Nitroglycerin 1 INCH/GM PACKET TP ONE (14:05)
[2020-12-03 14:35] LABS: Creatine Kinase 139 Units/L (30-223); Lipase 19 Units/L (11-82); Magnesium 1.9 mg/dL (1.6-2.6); Troponin I < 0.03 ng/mL (< 0.04)
[2020-12-03 14:49] LABS: Thyroid Stimulating Hormone 0.722 mcIU/mL (0.340-5.600)
[2020-12-03 15:00] LABS: INR 1.1; Prothrombin Time 12.5 Seconds (9.4-12.1)
[2020-12-03 15:02] LABS: Activated Partial Thrombo Time 33.2 Seconds (26.0-36.0)
[2020-12-03] MEDS: Nitroglycerin 0.4 MG TAB.SUBL SL PRN ×2 (15:16→15:27)
[2020-12-03 15:38] LABS: Amphetamine Screen,Urine Negative ng/mL (Cutoff=1000); Barbiturate Screen,Urine Negative ng/mL (Cutoff=200); Benzodiazepines Screen,Urine Negative ng/mL (Cutoff=200); Cannabinoid Screen,Urine Negative ng/mL (Cutoff = 50); Cocaine Screen,Urine Negative ng/mL (Cutoff= 300); Opiate Screen,Urine Negative ng/mL (Cutoff=300); Phencyclidine Screen,Urine Negative ng/mL (Cutoff=25)
[2020-12-03] MEDS ORDERED: Morphine Sulfate 2 MG/ML SYRINGE IVP ONE (16:01)
[2020-12-03] MEDS ORDERED: Ondansetron 4 MG/2 ML VIAL IVP PRN (16:16)
[2020-12-03] MEDS ORDERED: Naloxone 0.4 MG/ML INJ IVP PRN (16:16)
[2020-12-03] MEDS ORDERED: *HR* OxyCODONE Immed Rel 5 MG TABLET PO PRN (16:16)
[2020-12-03] MEDS ORDERED: *HR* HYDROcodone/Acet 5/325 mg TABLET PO PRN (16:16)
[2020-12-03] MEDS ORDERED: GI Cocktail 40 ML EACH PO ONE (17:25)
[2020-12-03] MEDS: Metoprolol XL (24 HR) Succ 25 MG TAB.ER.24H PO SCH (18:28)
[2020-12-03] MEDS: Budesonide/Formoterol 80/4.5 1 PUFF INH IH SCH (19:47)
[2020-12-03] MEDS: Ziprasidone 20 MG CAPSULE PO SCH (20:53)
[2020-12-03] MEDS: clonazePAM 1 MG TABLET PO SCH (20:53)
[2020-12-03] MEDS: Gabapentin 400 MG CAPSULE PO SCH (20:53)
[2020-12-03] MEDS: *HR* Heparin 5,000 UNIT/ML VIAL SQ SCH (20:54)
[2020-12-03] MEDS ORDERED: traZODone 50 MG TABLET PO SCH (21:00)
[2020-12-04 02:17] LABS: Basophils % 0.5 %; Eosinophils # 0.1 K/mcL (0.0-0.6); Eosinophils % 1.7 %; Hematocrit 37.7 % (37.5-50.1); Hemoglobin 12.9 g/dL (12.9-16.9); Immature Granulocytes % 0.3 % (0-4); Lymphocytes # 1.7 K/mcL (0.6-4.6); Lymphocytes % 26.3 %; Mean Corpuscular HGB Conc 34.2 g/dL (31.6-35.5); Mean Corpuscular Hemoglobin 30.1 pg (28.0-33.3); Mean Corpuscular Volume 88.1 fL (83.0-100.0); Mean Platelet Volume 10.1 fL (9.4-12.4); Monocytes # 0.8 K/mcL (0.0-1.3); Monocytes % 11.7 %; Neutrophils # 3.9 K/mcL (1.6-8.9); Platelet Count 225 K/mcL (140-400); Red Blood Count 4.28 M/mcL (4.19-5.50); Segmented Neutrophils % 59.5 %; White Blood Count 6.6 K/mcL (4.3-11.1)
[2020-12-04 02:25] LABS: INR 1.1; Prothrombin Time 12.8 Seconds (9.4-12.1)
[2020-12-04 02:27] LABS: Activated Partial Thrombo Time 31.5 Seconds (26.0-36.0)
[2020-12-04 02:32] LABS: BUN/Creatinine Ratio 15 (6-26); Blood Urea Nitrogen 13 mg/dL (6-20); Calcium 8.5 mg/dL (8.6-10.3); Carbon Dioxide 25 mEq/L (23-29); Chloride 106 mEq/L (98-107); Chol/HDL Ratio 6.4 (0-4.9); Cholesterol 122 mg/dL (< 200); Glucose 169 mg/dL (70-105); HDL Cholesterol 19 mg/dL (40-59); LDL Cholesterol,Calculated 73 mg/dL (< 100); Magnesium 1.9 mg/dL (1.6-2.6); Osmolality,Calculated 296 (280-300); Phosphorous 2.5 mg/dL (2.7-4.5); Potassium 3.7 mEq/L (3.5-5.1); Sodium 141 mEq/L (136-145); Triglycerides 150 mg/dL (< 150); Troponin I < 0.03 ng/mL (< 0.04); eGFR For African Americans > 60 (> 60); eGFR For Non-African Americans > 60 (> 60)
[2020-12-04] MEDS: *HR* Heparin 5,000 UNIT/ML VIAL SQ SCH (05:24)
[2020-12-04 07:30] VITALS: BP 139/81
[2020-12-04] MEDS: Budesonide/Formoterol 80/4.5 1 PUFF INH IH SCH (07:44)
[2020-12-04] MEDS: Metoprolol XL (24 HR) Succ 25 MG TAB.ER.24H PO SCH (08:31)
[2020-12-04] MEDS: clonazePAM 1 MG TABLET PO SCH (08:31)
[2020-12-04] MEDS: Ziprasidone 20 MG CAPSULE PO SCH (08:31)
[2020-12-04] MEDS: Gabapentin 400 MG CAPSULE PO SCH (08:31)
[2020-12-04] MEDS ORDERED: BuPROPion XL (24 HR) 150 MG TABLET PO SCH (09:00)
== END 2020-12-04 08:51 | disposition home or self-care (01) ==
LOC: 3BNU 13:38 → EMEROOARM 13:38 → SUATTDRO 16:48 → 3BNU 17:41
PROVIDERS: ADMIT Internal Medicine; ATTEND Internal Medicine

== ENCOUNTER 2021-04-03 11:15 | Inpatient (IN) ==
[2021-04-03 12:31] LABS: Amphetamine Screen,Urine Negative ng/mL (Cutoff=1000); Barbiturate Screen,Urine Negative ng/mL (Cutoff=200)
[2021-04-03 12:31] LABS: Bilirubin,Urine Negative (Negative); Blood,Urine Negative (Negative); Clarity,Urine Clear (Clear); Color,Urine Light-Yellow (Yellow); Glucose,Urine (UA) Normal (Normal); Ketones,Urine Negative (Negative); Leukocyte Esterase,Urine Negative (Negative); Nitrite,Urine Negative (Negative); Protein,Urine Trace mg/dL (Neg-Trace); Specific Gravity,Urine 1.025 (1.010-1.025); Urobilinogen,Urine Normal (Normal)
[2021-04-03 12:32] LABS: Benzodiazepines Screen,Urine Negative ng/mL (Cutoff=300); Cannabinoid Screen,Urine Negative ng/mL (Cutoff = 50); Cocaine Screen,Urine Negative ng/mL (Cutoff= 300); Opiate Screen,Urine Negative ng/mL (Cutoff=300); Phencyclidine Screen,Urine Negative ng/mL (Cutoff=25)
[2021-04-03 12:38] LABS: Basophils % 0.4 %; Eosinophils # 0.1 K/mcL (0.0-0.6); Eosinophils % 0.5 %; Hematocrit 43.8 % (37.5-50.1); Hemoglobin 14.6 g/dL (12.9-16.9); Immature Granulocytes % 0.3 % (0-4); Lymphocytes # 1.6 K/mcL (0.6-4.6); Lymphocytes % 15.4 %; Mean Corpuscular HGB Conc 33.3 g/dL (31.6-35.5); Mean Corpuscular Hemoglobin 29.3 pg (28.0-33.3); Mean Corpuscular Volume 87.8 fL (83.0-100.0); Mean Platelet Volume 9.6 fL (9.4-12.4); Monocytes # 0.8 K/mcL (0.0-1.3); Monocytes % 7.9 %; Neutrophils # 7.7 K/mcL (1.6-8.9); Platelet Count 256 K/mcL (140-400); Red Blood Count 4.99 M/mcL (4.19-5.50); Red Cell Distribution Width 13.7 % (11.5-14.5); Segmented Neutrophils % 75.5 %; White Blood Count 10.2 K/mcL (4.3-11.1)
[2021-04-03 13:05] LABS: Acetaminophen < 10 mcg/mL (10-20); BUN/Creatinine Ratio 19 (6-26); Blood Urea Nitrogen 18 mg/dL (6-20); Calcium 8.6 mg/dL (8.6-10.3); Carbon Dioxide 28 mEq/L (23-29); Chloride 106 mEq/L (98-107); Ethanol < 10 mg/dL (Less than 10); Glucose 88 mg/dL (70-105); Osmolality,Calculated 287 (280-300); Salicylate < 2.5 mg/dL (15.0-30.0); Sodium 138 mEq/L (136-145); eGFR For African Americans > 60 (> 60); eGFR For Non-African Americans > 60 (> 60)
[2021-04-03 14:47] LABS: Influenza A PCR Negative (Negative); Influenza B PCR Negative (Negative); Resp. Syncytial Virus PCR Negative (Negative)
[2021-04-03 14:59] LABS: SARS-CoV-2 by PCR (In House) Negative (Negative)
[2021-04-03] MEDS ORDERED: Budesonide/Formoterol 80/4.5 1 PUFF INH IH PRN (15:27)
[2021-04-03] MEDS ORDERED: Triamcinolone Acet 0.1% CRM 80 GM Tube TP PRN (15:27)
[2021-04-03] MEDS ORDERED: hydrOXYzine pamoate 25 MG CAPSULE PO PRN (15:28)
[2021-04-03] MEDS ORDERED: *HR* LORazepam 1 MG TABLET PO PRN (15:28)
[2021-04-03] MEDS ORDERED: *HR* LORazepam 2 MG/ML VIAL IM PRN (15:28)
[2021-04-03] MEDS ORDERED: Haloperidol Lactate 5 MG/ML VIAL IM PRN (15:28)
[2021-04-03] MEDS ORDERED: haloperidoL 5 MG TABLET PO PRN (15:28)
[2021-04-03] MEDS ORDERED: *HR* LORazepam 0.5 MG TABLET PO PRN (15:31)
[2021-04-03] MEDS: Gabapentin 400 MG CAPSULE PO SCH (20:36)
[2021-04-03] MEDS: traZODone 50 MG TABLET PO SCH (20:37)
[2021-04-03] MEDS: hydrOXYzine pamoate 25 MG CAPSULE PO SCH (20:37)
[2021-04-03] MEDS: Acetaminophen 325 MG TABLET PO PRN (20:37)
[2021-04-03] MEDS: Ziprasidone 20 MG CAPSULE PO SCH (20:38)
[2021-04-04] MEDS: Cholecalciferol (D-3) 1,000 UNIT (25MCG) TABLET PO SCH (08:14)
[2021-04-04] MEDS: Gabapentin 400 MG CAPSULE PO SCH ×3 (08:14→20:30)
[2021-04-04] MEDS: Ziprasidone 20 MG CAPSULE PO SCH ×2 (08:15→20:31)
[2021-04-04] MEDS: BuPROPion XL (24 HR) 150 MG TABLET PO SCH (08:15)
[2021-04-04] MEDS: hydrOXYzine pamoate 25 MG CAPSULE PO SCH ×2 (08:15→20:31)
[2021-04-04] MEDS ORDERED: Nicotine 21 MG PATCH.TD24 TD SCH (09:00)
[2021-04-04] MEDS: Azelastine 0.1% Nasal Spray 30 ML BOTTLE NS SCH ×3 (09:09→20:48)
[2021-04-04] MEDS: Nicotine 2 MG GUM BC PRN (19:09)
[2021-04-04 20:20] VITALS: PULSE 63
[2021-04-04] MEDS: Acetaminophen 325 MG TABLET PO PRN (20:30)
[2021-04-04] MEDS: traZODone 50 MG TABLET PO SCH (20:30)
[2021-04-05] MEDS: Cholecalciferol (D-3) 1,000 UNIT (25MCG) TABLET PO SCH (08:24)
[2021-04-05] MEDS: BuPROPion XL (24 HR) 150 MG TABLET PO SCH (08:24)
[2021-04-05] MEDS: Gabapentin 400 MG CAPSULE PO SCH (08:24)
[2021-04-05] MEDS: Nicotine 2 MG GUM BC PRN (08:24)
[2021-04-05] MEDS: hydrOXYzine pamoate 25 MG CAPSULE PO SCH (08:24)
[2021-04-05] MEDS: Ziprasidone 20 MG CAPSULE PO SCH (08:24)
[2021-04-05 08:44] VITALS: BP 125/75; TEMP 98.2; O2SAT 93
[2021-04-05] MEDS: Azelastine 0.1% Nasal Spray 30 ML BOTTLE NS SCH (10:48)
== END 2021-04-05 12:40 | disposition home or self-care (01) | DRG 751 ==
LOC: EMEROOARM 11:15 → 1ANU 15:22
PROVIDERS: ADMIT Psychiatry & Neurology Psychiatry; ATTEND Psychiatry & Neurology Psychiatry

== ENCOUNTER 2021-04-10 09:29 | Inpatient (IN) ==
[2021-04-10 10:37] LABS: Basophils % 0.4 %; Eosinophils % 0.4 %; Hematocrit 44.4 % (37.5-50.1); Hemoglobin 15.1 g/dL (12.9-16.9); Immature Granulocytes % 0.4 % (0-4); Lymphocytes # 1.3 K/mcL (0.6-4.6); Lymphocytes % 13.6 %; Mean Corpuscular Hemoglobin 29.6 pg (28.0-33.3); Mean Corpuscular Volume 87.1 fL (83.0-100.0); Mean Platelet Volume 9.9 fL (9.4-12.4); Monocytes # 0.7 K/mcL (0.0-1.3); Monocytes % 7.6 %; Neutrophils # 7.2 K/mcL (1.6-8.9); Platelet Count 269 K/mcL (140-400); Red Cell Distribution Width 13.5 % (11.5-14.5); Segmented Neutrophils % 77.6 %; White Blood Count 9.2 K/mcL (4.3-11.1)
[2021-04-10 10:48] LABS: Bacteria,Urine Few per hpf (None-Few); Bilirubin,Urine Negative (Negative); Blood,Urine Negative (Negative); Clarity,Urine Clear (Clear); Color,Urine Yellow (Yellow); Glucose,Urine (UA) Normal (Normal); Ketones,Urine Negative (Negative); Leukocyte Esterase,Urine Negative (Negative); Mucus,Urine Few per lpf (None-Few); Nitrite,Urine Negative (Negative); Protein,Urine 30 mg/dL (Neg-Trace); RBC,Urine 0-3 per hpf (0-3); Specific Gravity,Urine > 1.030 (1.010-1.025); Urobilinogen,Urine Normal (Normal); WBC,Urine 0-3 per hpf (0-3)
[2021-04-10 10:51] LABS: Alanine Aminotransferase 35 Units/L (7-52); Albumin 3.7 g/dL (3.5-5.7); Albumin/Globulin Ratio 1.3 (1.1-2.2); Alkaline Phosphatase 105 Units/L (34-104); Aspartate Amino Transferase 18 Units/L (13-39); BUN/Creatinine Ratio 19 (6-26); Bilirubin,Indirect 0.5 mg/dL (0.0-1.0); Bilirubin,Total 0.5 mg/dL (0.3-1.0); Blood Urea Nitrogen 17 mg/dL (6-20); Calcium 8.7 mg/dL (8.6-10.3); Carbon Dioxide 26 mEq/L (23-29); Chloride 106 mEq/L (98-107); Globulin 2.9 g/dL (2.4-3.5); Glucose 96 mg/dL (70-105); Lipase 20 Units/L (11-82); Osmolality,Calculated 289 (280-300); Potassium 4.1 mEq/L (3.5-5.1); Sodium 139 mEq/L (136-145); Total Protein 6.6 g/dL (6.4-8.9); Troponin I < 0.03 ng/mL (< 0.04); eGFR For African Americans > 60 (> 60); eGFR For Non-African Americans > 60 (> 60)
[2021-04-10 11:01] LABS: Influenza A PCR Negative (Negative); Influenza B PCR Negative (Negative); Resp. Syncytial Virus PCR Negative (Negative)
[2021-04-10 11:34] LABS: SARS-CoV-2 by PCR (In House) Negative (Negative)
[2021-04-10] MEDS ORDERED: Isovue-370 500 ML BOTTLE IVP ONE (11:49)
[2021-04-10] MEDS ORDERED: GI Cocktail 40 ML EACH PO ONE (13:21)
[2021-04-10 15:09] LABS: Estimated Average Glucose 117 mg/dl; Hemoglobin A1C 5.7 %
[2021-04-10 15:28] LABS: Amphetamine Screen,Urine Negative ng/mL (Cutoff=1000); Barbiturate Screen,Urine Negative ng/mL (Cutoff=200); Benzodiazepines Screen,Urine Negative ng/mL (Cutoff=200); Cannabinoid Screen,Urine Negative ng/mL (Cutoff = 50); Cocaine Screen,Urine Negative ng/mL (Cutoff= 300); Opiate Screen,Urine Negative ng/mL (Cutoff=300); Phencyclidine Screen,Urine Negative ng/mL (Cutoff=25)
[2021-04-10 15:30] LABS: Acetaminophen < 10 mcg/mL (10-20); Chol/HDL Ratio 4.4 (0-4.9); Cholesterol 136 mg/dL (< 200); Ethanol < 10 mg/dL (Less than 10); HDL Cholesterol 31 mg/dL (40-59); LDL Cholesterol,Calculated 88 mg/dL (< 100); Salicylate < 2.5 mg/dL (15.0-30.0); Triglycerides 84 mg/dL (< 150)
[2021-04-10] MEDS ORDERED: Triamcinolone Acet 0.1% CRM 80 GM Tube TP PRN (17:27)
[2021-04-10] MEDS ORDERED: Budesonide/Formoterol 80/4.5 1 PUFF INH IH PRN (17:27)
[2021-04-10] MEDS ORDERED: traZODone 50 MG TABLET PO PRN (17:29)
[2021-04-10] MEDS ORDERED: haloperidoL 5 MG TABLET PO PRN (17:29)
[2021-04-10] MEDS ORDERED: Acetaminophen 325 MG TABLET PO PRN (17:29)
[2021-04-10] MEDS ORDERED: Haloperidol Lactate 5 MG/ML VIAL IM PRN (17:29)
[2021-04-10] MEDS: Ziprasidone 20 MG CAPSULE PO SCH (20:49)
[2021-04-10] MEDS: clonazePAM 0.5 MG TABLET PO SCH (20:49)
[2021-04-10] MEDS: traZODone 50 MG TABLET PO SCH (20:50)
[2021-04-10] MEDS: hydrOXYzine pamoate 25 MG CAPSULE PO SCH (20:50)
[2021-04-10] MEDS ORDERED: Gabapentin 400 MG CAPSULE PO SCH (21:00)
[2021-04-10] MEDS: Azelastine 0.1% Nasal Spray 30 ML BOTTLE NS SCH (21:17)
[2021-04-11] MEDS: Gabapentin 100 MG CAPSULE PO SCH ×3 (08:53→20:49)
[2021-04-11] MEDS: BuPROPion XL (24 HR) 150 MG TABLET PO SCH (08:53)
[2021-04-11] MEDS: Ziprasidone 20 MG CAPSULE PO SCH ×2 (08:53→20:49)
[2021-04-11] MEDS: Cholecalciferol (D-3) 1,000 UNIT (25MCG) TABLET PO SCH (08:54)
[2021-04-11] MEDS: Azelastine 0.1% Nasal Spray 30 ML BOTTLE NS SCH ×3 (08:54→22:13)
[2021-04-11] MEDS: hydrOXYzine pamoate 25 MG CAPSULE PO SCH ×2 (08:54→20:49)
[2021-04-11] MEDS: Nicotine 2 MG GUM BC PRN ×2 (11:49→17:26)
[2021-04-11] MEDS: clonazePAM 0.5 MG TABLET PO SCH (20:49)
[2021-04-11] MEDS: traZODone 50 MG TABLET PO SCH (20:49)
[2021-04-11] MEDS ORDERED: hydrOXYzine pamoate 25 MG CAPSULE PO PRN (23:01)
[2021-04-12] MEDS: Gabapentin 100 MG CAPSULE PO SCH (08:35)
[2021-04-12] MEDS: Ziprasidone 20 MG CAPSULE PO SCH (08:35)
[2021-04-12] MEDS: hydrOXYzine pamoate 25 MG CAPSULE PO SCH (08:35)
[2021-04-12] MEDS: Cholecalciferol (D-3) 1,000 UNIT (25MCG) TABLET PO SCH (08:36)
[2021-04-12] MEDS: BuPROPion XL (24 HR) 150 MG TABLET PO SCH (08:36)
[2021-04-12] MEDS: Azelastine 0.1% Nasal Spray 30 ML BOTTLE NS SCH (08:38)
[2021-04-12] MEDS: Nicotine 2 MG GUM BC PRN (08:39)
[2021-04-12 09:23] VITALS: BP 119/64; PULSE 60; TEMP 98.4; O2SAT 98
== END 2021-04-12 13:05 | disposition home or self-care (01) | DRG 751 ==
LOC: EMEROOARM 09:29 → 1ANU 17:13
PROVIDERS: ADMIT Psychiatry & Neurology Psychiatry; ATTEND Psychiatry & Neurology Psychiatry

== ENCOUNTER 2021-08-21 21:28 | Observation (INO) ==
[2021-08-21 21:52] LABS: Basophils # 0.1 K/mcL (0.0-0.2); Basophils % 0.5 %; Eosinophils # 0.1 K/mcL (0.0-0.6); Eosinophils % 0.5 %; Hemoglobin 15.6 g/dL (12.9-16.9); Immature Granulocytes % 0.5 % (0-4); Lymphocytes # 2.7 K/mcL (0.6-4.6); Mean Corpuscular HGB Conc 33.9 g/dL (31.6-35.5); Mean Corpuscular Hemoglobin 29.1 pg (28.0-33.3); Mean Corpuscular Volume 85.8 fL (83.0-100.0); Monocytes % 9.4 %; Platelet Count 295 K/mcL (140-400); Red Blood Count 5.36 M/mcL (4.19-5.50); Red Cell Distribution Width 13.3 % (11.5-14.5); Segmented Neutrophils % 64.1 %; White Blood Count 10.9 K/mcL (4.3-11.1)
[2021-08-21 22:13] LABS: BUN/Creatinine Ratio 20 (6-26); Blood Urea Nitrogen 19 mg/dL (6-20); Calcium 8.9 mg/dL (8.6-10.3); Carbon Dioxide 23 mEq/L (23-29); Chloride 104 mEq/L (98-107); Glucose 87 mg/dL (70-105); Lipase 18 Units/L (11-82); Osmolality,Calculated 286 (280-300); Potassium 3.8 mEq/L (3.5-5.1); Sodium 137 mEq/L (136-145); Troponin I < 0.03 ng/mL (< 0.04); eGFR For African Americans > 60 (> 60); eGFR For Non-African Americans > 60 (> 60)
[2021-08-21 22:46] LABS: Influenza A PCR Negative (Negative); Influenza B PCR Negative (Negative); Resp. Syncytial Virus PCR Negative (Negative)
[2021-08-21] MEDS: Nitroglycerin 0.4 MG TAB.SUBL SL PRN ×3 (22:46→23:04)
[2021-08-21 22:48] LABS: SARS-CoV-2 by PCR (In House) Negative (Negative)
[2021-08-21] MEDS ORDERED: Nitroglycerin 1 INCH/GM PACKET TP ONE (23:22)
[2021-08-21] MEDS ORDERED: Melatonin 3 MG TABLET PO PRN (23:27)
[2021-08-21] MEDS ORDERED: Naloxone 0.4 MG/ML INJ IVP PRN (23:27)
[2021-08-21] MEDS ORDERED: Acetaminophen 325 MG TABLET PO PRN (23:27)
[2021-08-21] MEDS ORDERED: Perflutren Lipid Microsphere 1.3 ML in 0.9 % Sodium Chloride 8.7 ML IVP PRN (23:29)
[2021-08-21] MEDS ORDERED: Aspirin 325 MG TABLET PO ONE (23:30)
[2021-08-21] MEDS ORDERED: Saliva Stimulant 44.3ml BOTTLE PO PRN (23:31)
[2021-08-22] MEDS ORDERED: Ipratropium/Albuterol Neb 3 ML IH PRN (00:36)
[2021-08-22] MEDS ORDERED: Dextrose 4 GM Chewable Tablets PO PRN ×2 (00:58)
[2021-08-22] MEDS ORDERED: *HR* Dextrose 50 % in Water (Syg) 50 ML SYRINGE IVP PRN (00:58)
[2021-08-22] MEDS ORDERED: D5% in Water 1,000 ML IVC PRN (00:58)
[2021-08-22] MEDS: clonazePAM 0.5 MG TABLET PO SCH ×3 (01:35→20:15)
[2021-08-22] MEDS: Gabapentin 400 MG CAPSULE PO SCH ×4 (01:35→20:14)
[2021-08-22] MEDS: Ziprasidone 20 MG CAPSULE PO SCH ×3 (01:35→20:15)
[2021-08-22 05:08] LABS: Hematocrit 42.1 % (37.5-50.1); Mean Corpuscular HGB Conc 33.3 g/dL (31.6-35.5); Mean Corpuscular Hemoglobin 29.1 pg (28.0-33.3); Mean Corpuscular Volume 87.5 fL (83.0-100.0); Mean Platelet Volume 10.1 fL (9.4-12.4); Platelet Count 248 K/mcL (140-400); Red Blood Count 4.81 M/mcL (4.19-5.50); Red Cell Distribution Width 13.5 % (11.5-14.5); White Blood Count 7.8 K/mcL (4.3-11.1)
[2021-08-22 05:16] LABS: INR 1.2; Prothrombin Time 12.9 Seconds (9.4-12.1)
[2021-08-22 05:18] LABS: Estimated Average Glucose 123 mg/dl; Hemoglobin A1C 5.9 %
[2021-08-22 05:19] LABS: Activated Partial Thrombo Time 31.3 Seconds (26.0-36.0)
[2021-08-22 05:27] LABS: Alanine Aminotransferase 21 Units/L (7-52); Albumin 3.4 g/dL (3.5-5.7); Albumin/Globulin Ratio 1.3 (1.1-2.2); Alkaline Phosphatase 67 Units/L (34-104); Aspartate Amino Transferase 17 Units/L (13-39); BUN/Creatinine Ratio 22 (6-26); Bilirubin,Total 0.3 mg/dL (0.3-1.0); Blood Urea Nitrogen 21 mg/dL (6-20); Calcium 8.7 mg/dL (8.6-10.3); Carbon Dioxide 24 mEq/L (23-29); Chloride 106 mEq/L (98-107); Cholesterol 149 mg/dL (< 200); Globulin 2.6 g/dL (2.4-3.5); Glucose 139 mg/dL (70-105); HDL Cholesterol 25 mg/dL (40-59); LDL Cholesterol,Calculated 97 mg/dL (< 100); Magnesium 2.1 mg/dL (1.6-2.6); Osmolality,Calculated 289 (280-300); Phosphorous 4.1 mg/dL (2.7-4.5); Potassium 3.8 mEq/L (3.5-5.1); Sodium 137 mEq/L (136-145); Triglycerides 137 mg/dL (< 150); Troponin I < 0.03 ng/mL (< 0.04); eGFR For African Americans > 60 (> 60); eGFR For Non-African Americans > 60 (> 60)
[2021-08-22 05:40] LABS: Thyroid Stimulating Hormone 2.013 mcIU/mL (0.340-5.600)
[2021-08-22] MEDS ORDERED: Regadenoson 0.4 MG/5 ML SYRINGE IVP ONE (05:45)
[2021-08-22] MEDS ORDERED: Gabapentin 400 MG CAPSULE PO SCH (09:00)
[2021-08-22] MEDS ORDERED: Ziprasidone 20 MG CAPSULE PO SCH (09:00)
[2021-08-22] MEDS ORDERED: clonazePAM 0.5 MG TABLET PO SCH (09:00)
[2021-08-22] MEDS: hydrOXYzine pamoate 25 MG CAPSULE PO SCH ×2 (09:53→20:15)
[2021-08-22] MEDS: *HR* Enoxaparin 40 MG/0.4 ML SYRINGE SQ SCH ×2 (09:54→20:14)
[2021-08-22] MEDS: BuPROPion XL (24 HR) 150 MG TABLET PO SCH (09:54)
[2021-08-22] MEDS: Aspirin 81 MG TAB.CHEW PO SCH (09:54)
[2021-08-22] MEDS ORDERED: NON-FORMULARY MEDICATION 1 EACH EACH (Trazodone Hcl 100 MG Tablet) PO SCH (21:00)
[2021-08-22 23:02] VITALS: O2SAT 95
[2021-08-23 03:03] VITALS: BP 126/76; PULSE 57; TEMP 97.7
[2021-08-23 07:35] LABS: Amphetamine Screen,Urine Negative ng/mL (Cutoff=1000); Barbiturate Screen,Urine Negative ng/mL (Cutoff=200); Benzodiazepines Screen,Urine Negative ng/mL (Cutoff=200); Cannabinoid Screen,Urine Negative ng/mL (Cutoff = 50); Cocaine Screen,Urine Negative ng/mL (Cutoff= 300); Opiate Screen,Urine Negative ng/mL (Cutoff=300); Phencyclidine Screen,Urine Negative ng/mL (Cutoff=25)
[2021-08-23] MEDS: clonazePAM 0.5 MG TABLET PO SCH (10:17)
[2021-08-23] MEDS: Gabapentin 400 MG CAPSULE PO SCH (10:17)
[2021-08-23] MEDS: hydrOXYzine pamoate 25 MG CAPSULE PO SCH (10:17)
[2021-08-23] MEDS: BuPROPion XL (24 HR) 150 MG TABLET PO SCH (10:17)
[2021-08-23] MEDS: *HR* Enoxaparin 40 MG/0.4 ML SYRINGE SQ SCH (10:18)
[2021-08-23] MEDS: Aspirin 81 MG TAB.CHEW PO SCH (10:18)
[2021-08-23] MEDS: Ziprasidone 20 MG CAPSULE PO SCH (10:18)
== END 2021-08-23 10:56 | disposition home or self-care (01) ==
LOC: SUATTDRO → EMEROOARM 21:28 → 3BNU 21:28 → SUATTDRO 08-22 00:02 → 3BNU 08-22 00:15
PROVIDERS: ADMIT Internal Medicine; ATTEND Registered Nurse

== ENCOUNTER 2021-08-31 19:14 | Inpatient (IN) ==
[2021-08-31 19:53] LABS: Basophils % 0.4 %; Eosinophils # 0.1 K/mcL (0.0-0.6); Eosinophils % 0.6 %; Hematocrit 46.2 % (37.5-50.1); Hemoglobin 15.9 g/dL (12.9-16.9); Immature Granulocytes % 0.4 % (0-4); Lymphocytes # 2.3 K/mcL (0.6-4.6); Lymphocytes % 21.7 %; Mean Corpuscular HGB Conc 34.4 g/dL (31.6-35.5); Mean Corpuscular Hemoglobin 29.7 pg (28.0-33.3); Mean Corpuscular Volume 86.2 fL (83.0-100.0); Mean Platelet Volume 9.8 fL (9.4-12.4); Monocytes % 9.3 %; Neutrophils # 7.1 K/mcL (1.6-8.9); Platelet Count 326 K/mcL (140-400); Red Blood Count 5.36 M/mcL (4.19-5.50); Red Cell Distribution Width 13.2 % (11.5-14.5); Segmented Neutrophils % 67.6 %; White Blood Count 10.5 K/mcL (4.3-11.1)
[2021-08-31 20:01] LABS: Amphetamine Screen,Urine Negative ng/mL (Cutoff=1000); Barbiturate Screen,Urine Negative ng/mL (Cutoff=200); Benzodiazepines Screen,Urine Negative ng/mL (Cutoff=200); Cannabinoid Screen,Urine Negative ng/mL (Cutoff = 50); Cocaine Screen,Urine Negative ng/mL (Cutoff= 300); Opiate Screen,Urine Negative ng/mL (Cutoff=300); Phencyclidine Screen,Urine Negative ng/mL (Cutoff=25)
[2021-08-31 20:03] LABS: Bilirubin,Urine Negative (Negative); Blood,Urine Negative (Negative); Clarity,Urine Clear (Clear); Color,Urine Light-Yellow (Yellow); Glucose,Urine (UA) Normal (Normal); Ketones,Urine Negative (Negative); Leukocyte Esterase,Urine Negative (Negative); Nitrite,Urine Negative (Negative); Protein,Urine Trace mg/dL (Neg-Trace); Specific Gravity,Urine 1.021 (1.010-1.025); Urobilinogen,Urine Normal (Normal)
[2021-08-31 20:09] LABS: Acetaminophen < 10 mcg/mL (10-20); BUN/Creatinine Ratio 11 (6-26); Blood Urea Nitrogen 11 mg/dL (6-20); Calcium 9.1 mg/dL (8.6-10.3); Carbon Dioxide 27 mEq/L (23-29); Chloride 103 mEq/L (98-107); Chol/HDL Ratio 5.8 (0-4.9); Cholesterol 169 mg/dL (< 200); Ethanol < 10 mg/dL (Less than 10); Glucose 87 mg/dL (70-105); HDL Cholesterol 29 mg/dL (40-59); LDL Cholesterol,Calculated 114 mg/dL (< 100); Osmolality,Calculated 285 (280-300); Potassium 3.7 mEq/L (3.5-5.1); Salicylate < 2.5 mg/dL (15.0-30.0); Sodium 138 mEq/L (136-145); Triglycerides 130 mg/dL (< 150); eGFR For African Americans > 60 (> 60); eGFR For Non-African Americans > 60 (> 60)
[2021-08-31 20:44] LABS: Estimated Average Glucose 126 mg/dl
[2021-09-01] MEDS: traZODone 50 MG TABLET PO SCH ×2 (01:53→21:23)
[2021-09-01] MEDS ORDERED: *HR* LORazepam 1 MG TABLET PO PRN (09:29)
[2021-09-01] MEDS ORDERED: traZODone 50 MG TABLET PO PRN (09:29)
[2021-09-01] MEDS ORDERED: MOM Conc 10 ML UD.LIQ PO PRN (09:29)
[2021-09-01] MEDS ORDERED: Haloperidol Lactate 5 MG/ML VIAL IM PRN (09:29)
[2021-09-01] MEDS ORDERED: hydrOXYzine pamoate 25 MG CAPSULE PO PRN (09:29)
[2021-09-01] MEDS ORDERED: *HR* LORazepam 2 MG/ML VIAL IM PRN (09:29)
[2021-09-01] MEDS ORDERED: haloperidoL 5 MG TABLET PO PRN (09:29)
[2021-09-01] MEDS ORDERED: Acetaminophen 325 MG TABLET PO PRN (09:29)
[2021-09-01] MEDS ORDERED: Mag Hydrox/Al Hydrox/Simeth 30 ML UDC PO PRN (09:29)
[2021-09-01] MEDS ORDERED: Budesonide/Formoterol 80/4.5 1 PUFF INH IH PRN (09:31)
[2021-09-01 10:52] LABS: Influenza A PCR Negative (Negative); Influenza B PCR Negative (Negative); Resp. Syncytial Virus PCR Negative (Negative); SARS-CoV-2 by PCR (In House) Negative (Negative)
[2021-09-01] MEDS: Gabapentin 400 MG CAPSULE PO SCH ×2 (13:13→21:23)
[2021-09-01] MEDS: clonazePAM 0.5 MG TABLET PO SCH ×2 (13:13→21:23)
[2021-09-01] MEDS: BuPROPion XL (24 HR) 150 MG TABLET PO SCH (13:13)
[2021-09-01] MEDS: Ziprasidone 20 MG CAPSULE PO SCH ×2 (13:13→21:23)
[2021-09-01] MEDS: hydrOXYzine pamoate 25 MG CAPSULE PO SCH ×2 (13:13→21:24)
[2021-09-01] MEDS: Nicotine 2 MG GUM BC PRN ×2 (16:03→18:27)
[2021-09-02] MEDS: hydrOXYzine pamoate 25 MG CAPSULE PO SCH ×2 (08:15→20:15)
[2021-09-02] MEDS: BuPROPion XL (24 HR) 150 MG TABLET PO SCH (08:15)
[2021-09-02] MEDS: Ziprasidone 20 MG CAPSULE PO SCH ×2 (08:15→20:16)
[2021-09-02] MEDS: Gabapentin 400 MG CAPSULE PO SCH ×3 (08:15→20:15)
[2021-09-02] MEDS: clonazePAM 0.5 MG TABLET PO SCH ×2 (08:15→20:14)
[2021-09-02] MEDS: Nicotine 2 MG GUM BC PRN ×3 (08:38→20:18)
[2021-09-02] MEDS: traZODone 50 MG TABLET PO SCH (20:15)
[2021-09-02 20:39] VITALS: PULSE 68
[2021-09-03] MEDS: Ziprasidone 20 MG CAPSULE PO SCH (08:28)
[2021-09-03] MEDS: BuPROPion XL (24 HR) 150 MG TABLET PO SCH (08:28)
[2021-09-03] MEDS: hydrOXYzine pamoate 25 MG CAPSULE PO SCH (08:28)
[2021-09-03] MEDS: clonazePAM 0.5 MG TABLET PO SCH (08:29)
[2021-09-03] MEDS: Gabapentin 400 MG CAPSULE PO SCH (08:29)
[2021-09-03 08:54] VITALS: BP 115/76; TEMP 97.9; O2SAT 96
[2021-09-03] MEDS: Nicotine 2 MG GUM BC PRN (10:55)
== END 2021-09-03 12:30 | disposition home or self-care (01) | DRG 751 ==
LOC: EMEROOARM 19:14 → 1ANU 09-01 11:14
PROVIDERS: ADMIT Psychiatry & Neurology Psychiatry; ATTEND Psychiatry & Neurology Psychiatry

== ENCOUNTER 2021-11-10 11:01 | Inpatient (IN) ==
[2021-11-10 11:27] LABS: Bilirubin,Urine Negative (Negative); Blood,Urine Negative (Negative); Clarity,Urine Clear (Clear); Color,Urine Yellow (Yellow); Glucose,Urine (UA) Normal (Normal); Ketones,Urine Negative (Negative); Leukocyte Esterase,Urine Negative (Negative); Nitrite,Urine Negative (Negative); Protein,Urine Trace mg/dL (Neg-Trace); Specific Gravity,Urine 1.026 (1.010-1.025); Urobilinogen,Urine Normal (Normal)
[2021-11-10 11:33] LABS: Basophils % 0.5 %; Eosinophils % 0.5 %; Hematocrit 45.7 % (37.5-50.1); Hemoglobin 15.3 g/dL (12.9-16.9); Immature Granulocytes % 0.5 % (0-4); Lymphocytes # 1.3 K/mcL (0.6-4.6); Lymphocytes % 14.8 %; Mean Corpuscular HGB Conc 33.5 g/dL (31.6-35.5); Mean Corpuscular Hemoglobin 29.3 pg (28.0-33.3); Mean Corpuscular Volume 87.5 fL (83.0-100.0); Mean Platelet Volume 9.9 fL (9.4-12.4); Monocytes # 0.7 K/mcL (0.0-1.3); Monocytes % 7.9 %; Neutrophils # 6.5 K/mcL (1.6-8.9); Platelet Count 290 K/mcL (140-400); Red Blood Count 5.22 M/mcL (4.19-5.50); Red Cell Distribution Width 13.9 % (11.5-14.5); Segmented Neutrophils % 75.8 %; White Blood Count 8.6 K/mcL (4.3-11.1)
[2021-11-10 11:42] LABS: Amphetamine Screen,Urine Negative ng/mL (Cutoff=1000); Barbiturate Screen,Urine Negative ng/mL (Cutoff=200); Benzodiazepines Screen,Urine Negative ng/mL (Cutoff=200); Cannabinoid Screen,Urine Negative ng/mL (Cutoff = 50); Cocaine Screen,Urine Negative ng/mL (Cutoff= 300); Opiate Screen,Urine Negative ng/mL (Cutoff=300); Phencyclidine Screen,Urine Negative ng/mL (Cutoff=25)
[2021-11-10 11:46] LABS: Estimated Average Glucose 131 mg/dl; Hemoglobin A1C 6.2 %
[2021-11-10 11:57] LABS: Acetaminophen < 10 mcg/mL (10-20); BUN/Creatinine Ratio 13 (6-26); Blood Urea Nitrogen 13 mg/dL (6-20); Calcium 8.9 mg/dL (8.6-10.3); Carbon Dioxide 27 mEq/L (23-29); Chloride 104 mEq/L (98-107); Chol/HDL Ratio 6.4 (0-4.9); Cholesterol 198 mg/dL (< 200); Ethanol < 10 mg/dL (Less than 10); Glucose 112 mg/dL (70-105); HDL Cholesterol 31 mg/dL (40-59); LDL Cholesterol,Calculated 141 mg/dL (< 100); Osmolality,Calculated 283 (280-300); Potassium 3.9 mEq/L (3.5-5.1); Salicylate < 2.5 mg/dL (15.0-30.0); Sodium 136 mEq/L (136-145); Triglycerides 131 mg/dL (< 150); eGFR For African Americans > 60 (> 60); eGFR For Non-African Americans > 60 (> 60)
[2021-11-10] MEDS ORDERED: *HR* LORazepam 2 MG/ML VIAL IM PRN (12:55)
[2021-11-10] MEDS ORDERED: haloperidoL 5 MG TABLET PO PRN (12:55)
[2021-11-10] MEDS ORDERED: hydrOXYzine pamoate 25 MG CAPSULE PO PRN ×2 (12:55→12:58)
[2021-11-10] MEDS ORDERED: Haloperidol Lactate 5 MG/ML VIAL IM PRN (12:55)
[2021-11-10] MEDS ORDERED: MOM Conc 10 ML UD.LIQ PO PRN (12:55)
[2021-11-10] MEDS ORDERED: traZODone 50 MG TABLET PO PRN (12:55)
[2021-11-10] MEDS ORDERED: *HR* LORazepam 1 MG TABLET PO PRN (12:55)
[2021-11-10] MEDS ORDERED: Mag Hydrox/Al Hydrox/Simeth 30 ML UDC PO PRN (12:55)
[2021-11-10] MEDS ORDERED: Budesonide/Formoterol 80/4.5 1 PUFF INH IH PRN (12:58)
[2021-11-10 14:03] LABS: Influenza A PCR Negative (Negative); Influenza B PCR Negative (Negative); Resp. Syncytial Virus PCR Negative (Negative); SARS-CoV-2 by PCR (In House) Negative (Negative)
[2021-11-10] MEDS ORDERED: Gabapentin 300 MG CAPSULE PO SCH (15:00)
[2021-11-10] MEDS: Gabapentin 400 MG CAPSULE PO SCH ×2 (15:39→20:31)
[2021-11-10] MEDS: Nicotine 2 MG GUM BC PRN (16:37)
[2021-11-10] MEDS: traZODone 50 MG TABLET PO SCH (20:31)
[2021-11-10] MEDS: Ziprasidone 20 MG CAPSULE PO SCH (20:31)
[2021-11-10] MEDS: clonazePAM 0.5 MG TABLET PO SCH (20:32)
[2021-11-10] MEDS: Azelastine 0.1% Nasal Spray 30 ML BOTTLE NS SCH (21:36)
[2021-11-11] MEDS: Vitamin B Complex/Vit C/Vit E 1 EACH TABLET PO SCH (08:27)
[2021-11-11] MEDS: Gabapentin 400 MG CAPSULE PO SCH ×3 (08:27→20:23)
[2021-11-11] MEDS: Nicotine 21 MG PATCH.TD24 TD SCH (08:27)
[2021-11-11] MEDS: BuPROPion XL (24 HR) 150 MG TABLET PO SCH (08:27)
[2021-11-11] MEDS: Ziprasidone 20 MG CAPSULE PO SCH ×2 (08:28→20:23)
[2021-11-11] MEDS: Azelastine 0.1% Nasal Spray 30 ML BOTTLE NS SCH ×2 (08:28→20:24)
[2021-11-11] MEDS: clonazePAM 0.5 MG TABLET PO SCH ×2 (08:28→20:23)
[2021-11-11] MEDS: Nicotine 2 MG GUM BC PRN ×2 (08:30→13:23)
[2021-11-11] MEDS: traZODone 50 MG TABLET PO SCH (20:23)
[2021-11-12] MEDS: Nicotine 21 MG PATCH.TD24 TD SCH (08:29)
[2021-11-12] MEDS: Ziprasidone 20 MG CAPSULE PO SCH ×2 (08:30→20:29)
[2021-11-12] MEDS: BuPROPion XL (24 HR) 150 MG TABLET PO SCH (08:30)
[2021-11-12] MEDS: Vitamin B Complex/Vit C/Vit E 1 EACH TABLET PO SCH (08:30)
[2021-11-12] MEDS: Gabapentin 400 MG CAPSULE PO SCH ×3 (08:30→20:29)
[2021-11-12] MEDS: clonazePAM 0.5 MG TABLET PO SCH ×2 (08:30→20:29)
[2021-11-12] MEDS: Azelastine 0.1% Nasal Spray 30 ML BOTTLE NS SCH ×2 (08:32→20:29)
[2021-11-12] MEDS: Acetaminophen 325 MG TABLET PO PRN (10:18)
[2021-11-12] MEDS: Nicotine 2 MG GUM BC PRN (15:25)
[2021-11-12] MEDS: traZODone 50 MG TABLET PO SCH (20:29)
[2021-11-13] MEDS: Azelastine 0.1% Nasal Spray 30 ML BOTTLE NS SCH ×2 (08:34→20:19)
[2021-11-13] MEDS: BuPROPion XL (24 HR) 150 MG TABLET PO SCH (08:35)
[2021-11-13] MEDS: Gabapentin 400 MG CAPSULE PO SCH ×3 (08:35→20:17)
[2021-11-13] MEDS: Vitamin B Complex/Vit C/Vit E 1 EACH TABLET PO SCH (08:35)
[2021-11-13] MEDS: clonazePAM 0.5 MG TABLET PO SCH ×2 (08:35→20:17)
[2021-11-13] MEDS: Nicotine 21 MG PATCH.TD24 TD SCH (08:35)
[2021-11-13] MEDS: Ziprasidone 20 MG CAPSULE PO SCH ×2 (08:35→20:17)
[2021-11-13] MEDS ORDERED: Ergocalciferol (VIT D2) 50,000 UNIT (1.25MG) CAP PO SCH (09:00)
[2021-11-13] MEDS: traZODone 50 MG TABLET PO SCH (20:17)
[2021-11-13] MEDS: Nicotine 2 MG GUM BC PRN (20:17)
[2021-11-14] MEDS: Azelastine 0.1% Nasal Spray 30 ML BOTTLE NS SCH ×2 (09:25→21:10)
[2021-11-14] MEDS: Nicotine 21 MG PATCH.TD24 TD SCH (09:26)
[2021-11-14] MEDS: Vitamin B Complex/Vit C/Vit E 1 EACH TABLET PO SCH (09:27)
[2021-11-14] MEDS: BuPROPion XL (24 HR) 150 MG TABLET PO SCH (09:27)
[2021-11-14] MEDS: clonazePAM 0.5 MG TABLET PO SCH ×2 (09:28→21:10)
[2021-11-14] MEDS: Gabapentin 400 MG CAPSULE PO SCH ×3 (09:28→21:10)
[2021-11-14] MEDS: Ziprasidone 20 MG CAPSULE PO SCH ×2 (09:28→21:10)
[2021-11-14] MEDS: traZODone 50 MG TABLET PO SCH (21:10)
[2021-11-14] MEDS: Nicotine 2 MG GUM BC PRN (22:12)
[2021-11-15] MEDS: Ziprasidone 20 MG CAPSULE PO SCH ×2 (08:42→20:35)
[2021-11-15] MEDS: BuPROPion XL (24 HR) 150 MG TABLET PO SCH (08:43)
[2021-11-15] MEDS: clonazePAM 0.5 MG TABLET PO SCH ×2 (08:43→20:35)
[2021-11-15] MEDS: Vitamin B Complex/Vit C/Vit E 1 EACH TABLET PO SCH (08:44)
[2021-11-15] MEDS: Acetaminophen 325 MG TABLET PO PRN (08:44)
[2021-11-15] MEDS: Gabapentin 400 MG CAPSULE PO SCH ×3 (08:44→20:35)
[2021-11-15] MEDS: Nicotine 21 MG PATCH.TD24 TD SCH (08:46)
[2021-11-15] MEDS: Azelastine 0.1% Nasal Spray 30 ML BOTTLE NS SCH ×2 (09:45→20:37)
[2021-11-15] MEDS: Metoprolol XL (24 HR) Succ 25 MG TAB.ER.24H PO SCH (10:17)
[2021-11-15 16:15] VITALS: O2SAT 98
[2021-11-15] MEDS: Nicotine 2 MG GUM BC PRN (16:18)
[2021-11-15] MEDS: traZODone 50 MG TABLET PO SCH (20:36)
[2021-11-16] MEDS: Metoprolol XL (24 HR) Succ 25 MG TAB.ER.24H PO SCH (08:55)
[2021-11-16] MEDS: clonazePAM 0.5 MG TABLET PO SCH (08:55)
[2021-11-16] MEDS: Gabapentin 400 MG CAPSULE PO SCH ×2 (08:55→15:53)
[2021-11-16] MEDS: Azelastine 0.1% Nasal Spray 30 ML BOTTLE NS SCH (08:56)
[2021-11-16] MEDS: BuPROPion XL (24 HR) 150 MG TABLET PO SCH (08:56)
[2021-11-16] MEDS: Vitamin B Complex/Vit C/Vit E 1 EACH TABLET PO SCH (08:56)
[2021-11-16] MEDS: Ziprasidone 20 MG CAPSULE PO SCH (08:56)
[2021-11-16] MEDS: Nicotine 21 MG PATCH.TD24 TD SCH (08:56)
[2021-11-16 09:29] VITALS: BP 151/83; PULSE 65; TEMP 97.6
[2021-11-16] MEDS: Nicotine 2 MG GUM BC PRN (12:34)
== END 2021-11-16 18:30 | disposition other institution (70) | DRG 885 ==
LOC: EMEROOARM 11:01 → 1ANU 14:36
PROVIDERS: ADMIT Psychiatry & Neurology Forensic Psychiatry; ATTEND Psychiatry & Neurology Forensic Psychiatry